=== PATIENT | female | born 1970 | race African-American/Black ===

== ENCOUNTER 2020-05-26 08:04 | Emergency (ER) | payer OTHER, SELFPAY ==
[2020-05-26 08:27] VITALS: BP 145/74; PULSE 93; RESP 16; TEMP 37.2; O2SAT 100
--- NOTE | 2020-05-26 08:50 | ED.EYEPROB ---
HPI - Eye Problem General Chief complaint: Upper Respiratory Infection Stated complaint: pssible sinus infection Time Seen by Provider: 05/26/20 08:28 Source: patient and RN notes reviewed Mode of arrival: ambulatory Limitations: no limitations History of Present Illness HPI Narrative: Patient presents today complaining of a 1+ week history of itchy and burning, and stringy watery eyes that are matted every morning, left greater than right. No blurred vision or vision changes. Associated symptoms include postnasal drip. She has been taking Tylenol Sinus and Flonase without relief. She does not wear contacts. chief complaint: other (Eye discharge) Related Data Home Medications Medication Instructions Recorded Confirmed albuterol sulfate 2.5 mg CONTINUOUS NEBULIZATION QID 05/26/20 05/26/20 amoxicillin-pot clavulanate 1 tablet PO BID 05/26/20 05/26/20 atorvastatin 40 mg PO DAILY 05/26/20 05/26/20 diclofenac sodium 75 mg PO BID 05/26/20 05/26/20 ergocalciferol (vitamin D2) 1,250 mcg PO DAILY 05/26/20 05/26/20 fluticasone propionate 2 spray INTRANASAL DAILY 05/26/20 05/26/20 lisinopril-hydrochlorothiazide 1 tablet PO DAILY 05/26/20 05/26/20 meloxicam 15 mg PO DAILY 05/26/20 05/26/20 Allergies Allergy/AdvReac Type Severity Reaction Status Date / Time azithromycin Allergy Unknown Unknown Verified 05/26/20 08:12 Review of Systems Review of Systems: Narrative: CONSTITUTIONAL: Denies body aches, fever, chills, or sweats. EYES: Denies visual changes. +bilateral eye redness, itching, drainage ENT: Denies rhinorrhea, congestion, sore throat, or otalgia. +postnasal drip CARDIOVASCULAR: Denies chest pain, palpitations, or edema. RESPIRATORY: Denies cough or dyspnea. GASTROINTESTINAL: Denies abdominal pain, nausea, vomiting, or diarrhea. GENITOURINARY: Denies dysuria or hematuria. SKIN: Denies rash, itching, or wounds. MUSCULOSKELETAL: Denies back pain, joint pain, or myalgia. NEUROLOGIC: Denies headache, numbness, tingling, or weakness. PSYCH: Denies depression or anxiety. [facility] Past Medical History Medical History (Updated 05/26/20 @ 08:53 by Marianela Bonds, [facility], ) Asthma Bilateral knee pain Degenerative joint disease of knee High cholesterol HTN (hypertension) Seasonal allergies Weight gain Family History Family History (Updated 05/18/20 @ 15:29 by Traci Willard, RT(R)) Mother Hypertension Family history of arthritis Unknown Cancer Other Nerve disorder Social History Social History (Updated 05/18/20 @ 15:29 by Traci Willard, RT(R)) Smoking status: Former smoker Smoking end date: 10/02/05 Alcohol intake: current Comments At time of signature, I have reviewed and agree with nursing past medical, surgical, social and family history unless otherwise noted. Please see nursing chart for further information. There is no relevant family history pertinent to the presenting complaint Exam Narrative: Exam Narrative: GENERAL: Well-appearing, well-nourished, and in no acute distress. HEAD: Normocephalic, atraumatic. EYES: EOMI. No redness or drainage. Conjunctivae mildly injected. No purulent drainage. No active matting. No swelling of the eyelids. ENT: Mucous membranes pink and moist. Nares clear. No rhinorrhea. TMs normal bilaterally. Throat normal. Uvula midline. NECK: Normal AROM. Supple. No lymphadenopathy. CHEST: No respiratory distress. Clear to auscultation. HEART: Regular rate and rhythm. No murmur appreciated. Normal peripheral pulses. EXTREMITIES: Normal range of motion. No edema. SKIN: Warm, dry, no rash. Capillary refill normal. Normal skin turgor. NEURO: No focal deficits. Alert and oriented x3. Gait steady. PSYCH: Normal affect. No signs of depression or anxiety. Course Vital Signs Vital signs: Vital Signs Temperature 98.9 F 05/26/20 08:27 Pulse Rate 93 05/26/20 08:27 Respiratory Rate 16 05/26/20 08:27 Blood Pressure 145/74 H 05/26/20 08
== END 2020-05-26 08:54 | disposition home or self-care (01) ==
PROVIDERS: Emergency Provider Nurse Practitioner; PCP Family Medicine
DX: H10.13 Acute atopic conjunctivitis, bilateral (principal); Z87.891 Personal history of nicotine dependence; J45.909 Unspecified asthma, uncomplicated; E78.00 Pure hypercholesterolemia, unspecified; I10 Essential (primary) hypertension
CPT/HCPCS: 99211; G0463

== ENCOUNTER 2021-08-17 08:06 | Emergency (ER) | payer OTHER, SELFPAY ==
[2021-08-17 08:15] VITALS: BP 157/90; PULSE 91; RESP 16; TEMP 36.6; O2SAT 99
--- NOTE | 2021-08-17 08:41 | ED.GENADULT ---
HPI - General Adult General Chief complaint: Upper Respiratory Infection Stated complaint: sore throat Time Seen by Provider: 08/17/21 08:30 Source: patient and RN notes reviewed Mode of arrival: ambulatory Limitations: no limitations History of Present Illness HPI narrative: Patient presents today complaining of a painful area to the roof of her mouth x2 days. States the area is only painful when she eats, drinks, or touches it. She also reports associated symptoms for the past 2 months to include congestion, sinus pressure, postnasal drainage. Denies any painful, broken, or infected teeth, as she has dentures on the top. She has not tried any syzu-zau-noakudt medication for pain prior to arrival. She has been using Flonase and allergy medication for her sinus symptoms. MD complaint: Lesion to roof of mouth Related Data Home Medications Medication Instructions Recorded Confirmed atorvastatin 40 mg PO DAILY 05/26/20 08/17/21 diclofenac sodium 75 mg PO BID 05/26/20 08/17/21 ergocalciferol (vitamin D2) 1,250 mcg PO DAILY 05/26/20 08/17/21 fluticasone propionate 2 spray INTRANASAL DAILY 05/26/20 08/17/21 lisinopril-hydrochlorothiazide 1 tablet PO DAILY 05/26/20 08/17/21 meloxicam 15 mg PO DAILY 05/26/20 08/17/21 famotidine 20 mg PO DAILY 08/17/21 08/17/21 ferrous sulfate [FeroSul] 325 mg PO DAILY 08/17/21 08/17/21 trazodone 100 mg PO DAILY 08/17/21 08/17/21 Allergies Allergy/AdvReac Type Severity Reaction Status Date / Time azithromycin Allergy Unknown Unknown Verified 08/17/21 08:26 Review of Systems Review of Systems: CONSTITUTIONAL: Denies body aches, fever, chills, or sweats. EYES: Denies visual changes, redness, or discharge. ENT: Denies rhinorrhea, sore throat, or otalgia.+ Postnasal drip, congestion, sinus pressure, sore to roof of mouth CARDIOVASCULAR: Denies chest pain, palpitations, or edema. RESPIRATORY: Denies cough or dyspnea. GASTROINTESTINAL: Denies abdominal pain, nausea, vomiting, or diarrhea. GENITOURINARY: Denies dysuria or hematuria. SKIN: Denies rash, itching, or wounds. MUSCULOSKELETAL: Denies back pain, joint pain, or myalgia. NEUROLOGIC: Denies headache, numbness, tingling, or weakness. PSYCH: Denies depression or anxiety. [facility] Past Medical History Medical History Asthma Bilateral knee pain Degenerative joint disease of knee High cholesterol HTN (hypertension) Seasonal allergies Weight gain Family History Family History Mother Hypertension Family history of arthritis Unknown Cancer Other Nerve disorder Social History Social History Smoking status: Former smoker Smoking end date: 10/02/05 Alcohol intake: current Alcohol use details: Occasional Comments At time of signature, I have reviewed and agree with nursing past medical, surgical, social and family history unless otherwise noted. Please see nursing chart for further information. There is no relevant family history pertinent to the presenting complaint Exam Narrative: GENERAL: Well-appearing, well-nourished, and in no acute distress. HEAD: Normocephalic, atraumatic. EYES: EOMI. No redness or drainage. Conjunctivae normal. ENT: Mucous membranes pink and moist. Nares congested. No rhinorrhea. TMs normal bilaterally. Throat normal. Uvula midline. 1x1.5cm lesion to midline hard palate that appears erythematous, possibly containing some purulent drainage. Patient has upper dentures. NECK: Normal AROM. Supple. No lymphadenopathy. CHEST: No respiratory distress. EXTREMITIES: Normal range of motion. No edema. SKIN: Warm, dry, no rash. Capillary refill normal. Normal skin turgor. NEURO: No focal deficits. Alert and oriented x3. Gait steady. PSYCH: Normal affect. No signs of depression or anxiety. Course Vital Signs Vi
== END 2021-08-17 08:55 | disposition home or self-care (01) ==
PROVIDERS: Emergency Provider Nurse Practitioner; PCP Family Medicine
DX: J32.9 Chronic sinusitis, unspecified (principal); K12.2 Cellulitis and abscess of mouth; Z87.891 Personal history of nicotine dependence; J45.909 Unspecified asthma, uncomplicated; E78.00 Pure hypercholesterolemia, unspecified; I10 Essential (primary) hypertension; M17.10 Unilateral primary osteoarthritis, unspecified knee
CPT/HCPCS: 99213; G0463

== ENCOUNTER 2023-01-12 19:33 | Emergency (ER) | payer OTHER, SELFPAY ==
[2023-01-12 19:43] VITALS: BP 173/87; PULSE 95; RESP 16; TEMP 36.6; O2SAT 99
--- NOTE | 2023-01-12 19:52 | ED.GENADULT ---
HPI - General Adult General Chief complaint: Unspecified Stated complaint: HBP Time Seen by Provider: 01/12/23 19:52 Source: patient Mode of arrival: ambulatory Limitations: no limitations History of Present Illness HPI narrative: Patient is a 52-year-old female that presents with concern for high blood pressure. States she just got a new at home blood pressure monitor and states it has been reading 190s over 104. The patient states she has had increased stress due to new bills. Patient denies any changes in diet, changes in vision, headaches, numbness tingling to 1 side of her body and chest pain. Patient picked up medications January 02. States she went a few days without medications. Related Data Home Medications Medication Instructions Recorded Confirmed atorvastatin 40 mg tablet 40 mg PO DAILY 05/26/20 08/17/21 diclofenac sodium 75 mg 75 mg PO BID 05/26/20 08/17/21 tablet,delayed release ergocalciferol (vitamin D2) 1,250 1,250 mcg PO DAILY 05/26/20 08/17/21 mcg (50,000 unit) capsule fluticasone propionate 50 2 spray intranasal DAILY 05/26/20 08/17/21 mcg/actuation nasal spray,suspension lisinopril 20 1 tablet PO DAILY 05/26/20 08/17/21 mg-hydrochlorothiazide 12.5 mg tablet meloxicam 15 mg tablet 15 mg PO DAILY 05/26/20 08/17/21 famotidine 20 mg tablet 20 mg PO DAILY 08/17/21 08/17/21 ferrous sulfate 325 mg (65 mg 325 mg PO DAILY 08/17/21 08/17/21 iron) tablet (FeroSul) trazodone 100 mg tablet 100 mg PO DAILY 08/17/21 08/17/21 Allergies Allergy/AdvReac Type Severity Reaction Status Date / Time azithromycin Allergy Unknown Unknown Verified 01/12/23 19:51 Review of Systems Review of Systems: All systems reviewed & are unremarkable except as noted in HPI and below Constitutional: Constitutional: Denies body ache(s), Denies fever(s), Denies headache(s), Denies malaise and Denies weakness Eyes: Eyes: Denies loss of vision ENT: Denies otalgia, Denies headache(s), Denies nasal discharge, Denies sinus pain and Denies sore throat Cardiovascular: Cardiovascular: Denies chest pain, Denies irregular heart rhythm and Denies dyspnea Respiratory: Respiratory: Denies dyspnea Gastrointestinal: Gastrointestinal: Denies abdominal pain, Denies melena, Denies hematochezia, Denies diarrhea, Denies nausea and Denies vomiting Musculoskeletal: Musculoskeletal: Denies back pain, Denies myalgias and Denies arthralgias Integumentary/Breasts: Skin/Breast: Denies pruritus and Denies rash Neurologic: Denies headache(s), Denies loss of vision and Denies weakness Psychiatric: Psychiatric: Reports no additional psychiatric complaints PMFSH Past Medical History Medical History Asthma Bilateral knee pain Degenerative joint disease of knee High cholesterol HTN (hypertension) Seasonal allergies Weight gain Family History Family History Mother Hypertension Family history of arthritis Unknown Cancer Other Nerve disorder Social History Social History Smoking status: Former smoker Smoking end date: 10/02/05 Alcohol intake: current Alcohol use details: Occasional Comments At time of signature, agree with nursing past medical, surgical, social and family history. There is no relevant family history pertinent to the presenting complaint. Exam Const: General: cooperative, healthy appearing, comfortable, no acute distress and well nourished Nutritional Appearance: well nourished Orientation/consciousness: patient oriented x3 Limitations: no limitations HENMT: Head: normal to inspection, normocephalic and atraumatic Ears: external ears normal Face/Nose/Sinus: Normal external nose present, normal facial exam and face symmetric Face and sinus: normal facial exam and face symmetric Mouth: Yes lip normal Eyes: Gene
== END 2023-01-12 20:07 | disposition home or self-care (01) ==
PROVIDERS: Emergency Provider Nurse Practitioner Family
DX: I10 Essential (primary) hypertension (principal); Z87.891 Personal history of nicotine dependence; J45.909 Unspecified asthma, uncomplicated; E78.00 Pure hypercholesterolemia, unspecified
CPT/HCPCS: 99211; G0463

== ENCOUNTER 2023-01-24 08:45 | Emergency (ER) | payer OTHER, SELFPAY ==
[2023-01-24 08:53] VITALS: BP 159/90; PULSE 79; RESP 16; TEMP 36.2; O2SAT 100
--- NOTE | 2023-01-24 09:14 | ED.URI ---
HPI - URI/Sore Throat General Chief Complaint: Upper Respiratory Infection Stated Complaint: Sinus Time Seen by Provider: 01/24/23 09:16 Source: patient, RN notes reviewed and old records reviewed Mode of arrival: ambulatory Limitations: no limitations History of Present Illness HPI Narrative: 52-year-old female presents to the [facility] with complaints of left-sided ear pain, sinus pressure, sore throat that started over a week ago. Has tried multiple [id number]-[id number] products with no relief. Has not taken her blood pressure medication, states that she normally takes it every morning. MD elicited complaint: sore throat, rhinorrhea, nasal congestion and sinus pain Onset (ago): week(s) (1+) Treatments prior to arrival: cold medicine Related Data Home Medications Medication Instructions Recorded Confirmed atorvastatin 40 mg tablet 40 mg PO DAILY 05/26/20 01/24/23 diclofenac sodium 75 mg 75 mg PO BID 05/26/20 01/24/23 tablet,delayed release ergocalciferol (vitamin D2) 1,250 1,250 mcg PO DAILY 05/26/20 01/24/23 mcg (50,000 unit) capsule fluticasone propionate 50 2 spray intranasal DAILY 05/26/20 01/24/23 mcg/actuation nasal spray,suspension lisinopril 20 1 tablet PO DAILY 05/26/20 01/24/23 mg-hydrochlorothiazide 12.5 mg tablet meloxicam 15 mg tablet 15 mg PO DAILY 05/26/20 01/24/23 famotidine 20 mg tablet 20 mg PO DAILY 08/17/21 01/24/23 ferrous sulfate 325 mg (65 mg 325 mg PO DAILY 08/17/21 01/24/23 iron) tablet (FeroSul) trazodone 100 mg tablet 100 mg PO DAILY 08/17/21 01/24/23 Allergies Allergy/AdvReac Type Severity Reaction Status Date / Time azithromycin Allergy Unknown Unknown Verified 01/24/23 08:52 Review of Systems Review of Systems: All systems reviewed & are unremarkable except as noted in HPI and below Constitutional: Constitutional: Reports no additional constitutional complaints Eyes: Eyes: Reports no additional eye complaints ENT: Reports as per HPI, Reports otalgia (Left), Reports nasal congestion, Reports nasal discharge, Reports sinus pain, Reports sinus pressure and Reports sore throat Cardiovascular: Cardiovascular: Reports no additional cardiovascular complaints, Denies chest pain and Denies dyspnea Respiratory: Respiratory: Reports no additional respiratory complaints, Denies chest congestion, Denies cough and Denies dyspnea Gastrointestinal: Gastrointestinal: Reports no additional gastrointestinal complaints, Denies abdominal pain, Denies nausea and Denies vomiting Musculoskeletal: Musculoskeletal: Reports no additional musculoskeletal complaints Integumentary/Breasts: Skin/Breast: Reports system reviewed and no additional complaints, except as docu Neurologic: Reports system reviewed and no additional complaints, except as documented Psychiatric: Psychiatric: Reports no additional psychiatric complaints Allergic/Immunologic: Allergic/Immunologic: Reports no additional allergic/immunologic complaints PMFSH Past Medical History Medical History Asthma Bilateral knee pain Degenerative joint disease of knee High cholesterol HTN (hypertension) Seasonal allergies Weight gain Family History Family History Mother Hypertension Family history of arthritis Unknown Cancer Other Nerve disorder Social History Social History Smoking status: Former smoker Smoking end date: 10/02/05 Alcohol intake: current Alcohol use details: Occasional Comments At the time of my signature, I reviewed and agree with the nursing past medical, surgical, social, and family history. There is no relevant family history pertinent to the patient complaint. Exam Const: General: cooperative, healthy appearing, comfortable, no acute distress, well developed, alert and well nourished Nutritional Appearance: well vidhi
[2023-01-24 09:44] VITALS: BP 157/90
== END 2023-01-24 09:44 | disposition home or self-care (01) ==
PROVIDERS: Emergency Provider Nurse Practitioner; PCP Physician Assistant
DX: J01.90 Acute sinusitis, unspecified (principal); Z87.891 Personal history of nicotine dependence; J45.909 Unspecified asthma, uncomplicated; E78.00 Pure hypercholesterolemia, unspecified; I10 Essential (primary) hypertension
CPT/HCPCS: 99213; G0463

== ENCOUNTER 2023-02-04 17:21 | Emergency (ER) | payer OTHER, SELFPAY ==
[2023-02-04 17:31] VITALS: BP 157/85; PULSE 94; RESP 16; TEMP 36.9; O2SAT 16
--- NOTE | 2023-02-04 17:47 | ED.NAVMDI ---
HPI - Nausea/Vomiting/Diarrhea General Chief complaint: Nausea/Vomiting/Diarrhea Stated complaint: pain in stomach, n/v Time Seen by Provider: 02/04/23 17:50 Source: patient and RN notes reviewed Mode of arrival: ambulatory Limitations: no limitations History of Present Illness HPI Narrative: 52-year-old female presents with concern for nausea and vomiting. She reports she started vomiting around 2:00 p.m. today. Reports she thinks she had some bad watermelon last night. She reports abdominal cramping and epigastric pain. She denies diarrhea, fever, aches, chills, sweats. She denies back pain, dysuria, urgency, frequency, hematuria. She reports normal urine output MD elicited complaint: nausea and vomiting Related Data Home Medications Medication Instructions Recorded Confirmed atorvastatin 40 mg tablet 40 mg PO DAILY 05/26/20 01/24/23 diclofenac sodium 75 mg 75 mg PO BID 05/26/20 01/24/23 tablet,delayed release ergocalciferol (vitamin D2) 1,250 1,250 mcg PO DAILY 05/26/20 01/24/23 mcg (50,000 unit) capsule fluticasone propionate 50 2 spray intranasal DAILY 05/26/20 01/24/23 mcg/actuation nasal spray,suspension lisinopril 20 1 tablet PO DAILY 05/26/20 01/24/23 mg-hydrochlorothiazide 12.5 mg tablet meloxicam 15 mg tablet 15 mg PO DAILY 05/26/20 01/24/23 famotidine 20 mg tablet 20 mg PO DAILY 08/17/21 01/24/23 ferrous sulfate 325 mg (65 mg 325 mg PO DAILY 08/17/21 01/24/23 iron) tablet (FeroSul) trazodone 100 mg tablet 100 mg PO DAILY 08/17/21 01/24/23 Allergies Allergy/AdvReac Type Severity Reaction Status Date / Time azithromycin Allergy Unknown Unknown Verified 02/04/23 17:40 Review of Systems Review of Systems: CONSTITUTIONAL: Denies malaise, chills, sweats, or fever. ENT: Denies rhinorrhea, congestion, sinus pain, otalgia or sore throat. CARDIOVASCULAR: Denies chest pain, palpitations, or edema. RESPIRATORY: Denies cough or dyspnea. GASTROINTESTINAL: Reports epigastric abdominal discomfort, nausea, vomiting. Denies diarrhea, bloody, or mucous stools. GENITOURINARY: Denies dysuria or hematuria. MUSCULOSKELETAL: Denies myalgia. NEUROLOGIC: Denies headache. All systems reviewed & are unremarkable except as noted in HPI and below PMFSH Past Medical History Medical History Asthma Bilateral knee pain Degenerative joint disease of knee High cholesterol HTN (hypertension) Seasonal allergies Weight gain Family History Family History Mother Hypertension Family history of arthritis Unknown Cancer Other Nerve disorder Social History Social History Smoking status: Former smoker Smoking end date: 10/02/05 Alcohol intake: current Alcohol use details: Occasional Comments At time of signature, agree with nursing past medical, surgical, social and family history. There is no relevant family history pertinent to the presenting complaint Exam Narrative: GENERAL: Well-appearing, well-nourished, and in no acute distress. HEAD: Normocephalic, atraumatic. EYES: PERRLA, conjunctivae clear, and EOMI. ENT: Nares clear, turbinates pink, no rhinorrhea or epistaxis. Mucous membranes moist. Oropharynx without edema, erythema, or lesions. Tonsils not enlarged and without exudate. NECK: Supple. No lymphadenopathy CHEST: Speaks in full sentences. No respiratory distress. HEART: Regular rate and rhythm. ABDOMEN: Soft, obese, nondistended, epigastric tenderness. No guarding, rebound tenderness, or rigidity. No pulsatile masses. Bowel sounds present in all four quadrants. No organomegaly. Negative Arriaza?s sign. No periumbilical tenderness. No Supra public tenderness or distension. Good femoral pulses bilaterally. No hernia noted. No scars or surface trauma. SKIN: Warm, dry, no rash. NEURO: Alert and oriented x3. PSYCH: Norm
[2023-02-04] MEDS: LIDOCAINE HCL 2% VISC SOLN 15 ML UDC PO (18:06)
[2023-02-04] MEDS: MAG HYDROX/AL HYDROX/SIMETH 30 ML UDC PO (18:06)
--- NOTE | 2023-02-04 18:46 | PC.NURSE ---
soha was called in to [facility]. pharmacist stated pt was in drive thru and would be able to get rx.
== END 2023-02-04 18:20 | disposition home or self-care (01) ==
PROVIDERS: Emergency Provider Nurse Practitioner; PCP Physician Assistant
DX: R11.2 Nausea with vomiting, unspecified (principal); I10 Essential (primary) hypertension; Z87.891 Personal history of nicotine dependence
CPT/HCPCS: 99213; A9270; G0463

== ENCOUNTER 2023-04-10 09:42 | Emergency (ER) | payer OTHER, SELFPAY ==
[2023-04-10 09:49] VITALS: BP 136/82; PULSE 86; RESP 16; TEMP 36.9; O2SAT 100
--- NOTE | 2023-04-10 10:30 | ED.EXTPRO ---
HPI - Extremity Problem General Chief complaint: Extremity Injury, Upper Stated complaint: left shoulder pain Time Seen by Provider: 04/10/23 10:22 Source: patient and RN notes reviewed Mode of arrival: ambulatory Limitations: no limitations History of Present Illness HPI Narrative: Patient presents today complaining of left shoulder pain x1 week. States she woke up from bed with the pain. Denies injury or trauma. Denies numbness or tingling in the arm or hand. Denies neck pain. States pain radiates to the upper arm. Currently rates her pain 5/10 and has been taking ibuprofen with some short-term relief. Related Data Home Medications Medication Instructions Recorded Confirmed atorvastatin 40 mg tablet 40 mg PO DAILY 05/26/20 04/10/23 diclofenac sodium 75 mg 75 mg PO BID 05/26/20 04/10/23 tablet,delayed release ergocalciferol (vitamin D2) 1,250 1,250 mcg PO DAILY 05/26/20 04/10/23 mcg (50,000 unit) capsule fluticasone propionate 50 2 spray intranasal DAILY 05/26/20 04/10/23 mcg/actuation nasal spray,suspension lisinopril 20 1 tablet PO DAILY 05/26/20 04/10/23 mg-hydrochlorothiazide 12.5 mg tablet meloxicam 15 mg tablet 15 mg PO DAILY 05/26/20 04/10/23 famotidine 20 mg tablet 20 mg PO DAILY 08/17/21 04/10/23 ferrous sulfate 325 mg (65 mg 325 mg PO DAILY 08/17/21 04/10/23 iron) tablet (FeroSul) trazodone 100 mg tablet 100 mg PO DAILY 08/17/21 04/10/23 Allergies Allergy/AdvReac Type Severity Reaction Status Date / Time azithromycin Allergy Unknown Unknown Verified 04/10/23 09:47 Review of Systems Review of Systems: CONSTITUTIONAL: Denies body aches, fever, chills, or sweats. EYES: Denies visual changes, redness, or discharge. ENT: Denies rhinorrhea, congestion, sore throat, or otalgia. CARDIOVASCULAR: Denies chest pain, palpitations, or edema. RESPIRATORY: Denies cough or dyspnea. GASTROINTESTINAL: Denies abdominal pain, nausea, vomiting, or diarrhea. GENITOURINARY: Denies dysuria or hematuria. SKIN: Denies rash, itching, or wounds. MUSCULOSKELETAL: Denies back pain, or myalgia.+ left shoulder pain NEUROLOGIC: Denies headache, numbness, tingling, or weakness. PSYCH: Denies depression or anxiety. [facility] Past Medical History Medical History Asthma Bilateral knee pain Degenerative joint disease of knee High cholesterol HTN (hypertension) Seasonal allergies Weight gain Family History Family History Mother Hypertension Family history of arthritis Unknown Cancer Other Nerve disorder Social History Social History Smoking status: Former smoker Smoking end date: 10/02/05 Alcohol intake: current Alcohol use details: Occasional Comments At time of signature, I have reviewed and agree with nursing past medical, surgical, social and family history unless otherwise noted. Please see nursing chart for further information. There is no relevant family history pertinent to the presenting complaint Exam Narrative: GENERAL: Well-appearing, well-nourished, and in no acute distress. HEAD: Normocephalic, atraumatic. EYES: EOMI. No redness or drainage. Conjunctivae normal. ENT: Mucous membranes pink and moist. NECK: Normal AROM. Nontender CHEST: No respiratory distress. EXTREMITIES: + left shoulder: Tenderness to the anterior and lateral joint line. Tenderness to the proximal biceps. No tenderness to the neck or trapezius area. Distal sensation intact. Capillary refill normal. Pain with end range of motion with overhead reach and abduction as well as internal rotation. SKIN: Warm, dry, no rash. Capillary refill normal. Normal skin turgor. NEURO: No focal deficits. Alert and oriented x3. Gait steady. PSYCH: Normal affect. No signs of depression or anxiety. Course Course Level o
== END 2023-04-10 10:46 | disposition home or self-care (01) ==
PROVIDERS: Emergency Provider Nurse Practitioner; PCP Physician Assistant
DX: M25.512 Pain in left shoulder (principal); Z87.891 Personal history of nicotine dependence; J45.909 Unspecified asthma, uncomplicated; E78.00 Pure hypercholesterolemia, unspecified; I10 Essential (primary) hypertension
CPT/HCPCS: 99212; G0463

== ENCOUNTER 2024-01-26 08:21 | Emergency (ER) | payer OTHER, SELFPAY ==
[2024-01-26 08:30] VITALS: BP 163/80; PULSE 85; RESP 18; TEMP 36.8; O2SAT 100
--- NOTE | 2024-01-26 08:41 | ED.URI ---
HPI - URI/Sore Throat General Chief Complaint: Upper Respiratory Infection Stated Complaint: Sinus Time Seen by Provider: 01/26/24 08:41 Source: patient Mode of arrival: ambulatory Limitations: no limitations History of Present Illness HPI Narrative: 53-year-old female presents with complaint of right-sided sinus congestion, pressure, ear pain, sore throat to right side for 2 weeks. Taking Claritin daily. Has also use [id number] sinus decongestant with no relief of her symptoms. Afebrile. Denies cough. Denies nausea vomiting diarrhea. Patient concerned for sinus infection. All systems reviewed and negative except as noted above. Related Data Home Medications Medication Instructions Recorded Confirmed atorvastatin 40 mg tablet 40 mg PO DAILY 05/26/20 04/10/23 ergocalciferol (vitamin D2) 1,250 1,250 mcg PO DAILY 05/26/20 04/10/23 mcg (50,000 unit) capsule lisinopril 20 1 tablet PO DAILY 05/26/20 04/10/23 mg-hydrochlorothiazide 12.5 mg tablet famotidine 20 mg tablet 20 mg PO DAILY 08/17/21 04/10/23 ferrous sulfate 325 mg (65 mg 325 mg PO DAILY 08/17/21 04/10/23 iron) tablet (FeroSul) trazodone 100 mg tablet 100 mg PO DAILY 08/17/21 04/10/23 amlodipine 10 mg tablet mg 01/26/24 sitagliptin phosphate 100 mg mg 01/26/24 tablet (Januvia) Allergies Allergy/AdvReac Type Severity Reaction Status Date / Time azithromycin Allergy Unknown Unknown Verified 01/26/24 08:37 Review of Systems Review of Systems: CONSTITUTIONAL: Denies fever, chills, or sweats. reports fatigue. EYES: Denies visual changes, redness, or discharge. ENT: Reports rhinorrhea, congestion, sore throat, right ear pain CARDIOVASCULAR: Denies chest pain, palpitations, or edema. RESPIRATORY: denies cough or dyspnea. GASTROINTESTINAL: Denies abdominal pain, nausea, vomiting, or diarrhea. GENITOURINARY: Denies dysuria or hematuria. SKIN: Denies rash or itching. MUSCULOSKELETAL: Denies back pain, joint pain, or myalgia. NEUROLOGIC: Denies headache, numbness, or weakness. PSYCHIATRIC: Denies anxiety or depression. All other systems reviewed are negative, except as documented in HPI. [facility], [facility] Past Medical History Medical History Asthma Bilateral knee pain Degenerative joint disease of knee High cholesterol HTN (hypertension) Seasonal allergies Weight gain Family History Family History Mother Hypertension Family history of arthritis Unknown Cancer Other Nerve disorder Social History Social History Smoking status: Former smoker Smoking end date: 10/02/05 Alcohol intake: current Alcohol use details: Occasional Comments At time of signature, agree with nursing past medical, surgical, social and family history. There is no relevant family history pertinent to the presenting complaint. Exam Narrative: GENERAL: This is a well-nourished, well-developed patient, in no apparent distress. HEAD: normocephalic, atraumatic. EYES: PERRL. Sclera clear/white. Vision is grossly intact. EARS: External ears normal, auditory canals clear and without drainage, Fluid bilateral TMs without perforation. Hearing grossly intact. NOSE: External nose normal with mild congestion, clear nasal drainage, erythema and swelling to bilateral nares. Frontal and maxillary sinus tenderness bilaterally. THROAT: Mucous membranes moist, mild erythema with postnasal drainage. Tonsils normal without exudates. NECK: Neck supple, non-tender without lymphadenopathy, masses or thyromegaly. CARDIOVASCULAR: Regular rate and rhythm without murmurs, gallops, or rubs. RESPIRATORY: Clear to auscultation. Breath sounds equal bilaterally. No wheezes, rales, or rhonchi. SKIN: warm, Dry, intact with no suspicious lesions or rash, good texture and turgor. NEURO: awake,
== END 2024-01-26 09:05 | disposition home or self-care (01) ==
PROVIDERS: Emergency Provider Nurse Practitioner Family; PCP Physician Assistant
DX: J01.90 Acute sinusitis, unspecified (principal); Z87.891 Personal history of nicotine dependence; J45.909 Unspecified asthma, uncomplicated; E78.00 Pure hypercholesterolemia, unspecified; I10 Essential (primary) hypertension
CPT/HCPCS: 99213; G0463

== ENCOUNTER 2024-08-27 08:09 | Emergency (ER) | payer OTHER, SELFPAY ==
--- NOTE | 2024-08-27 08:11 | ED_ITS ---
HPI - Abdominal Pain General Chief Complaint: Abdominal Pain Stated Complaint: Lower Back/Abdominal Pain Time Seen by Provider: 08/27/24 08:10 Source: patient Mode of arrival: ambulatory Limitations: no limitations History of Present Illness HPI narrative: Barbara is a 54-year-old female patient presenting to the clinic today with complaints of right lower back pain/right lower abdominal pain. She reports symptoms have been going on for 3 days. Has taken a back pill and this helps the pain. Rates her pain 7/10 currently. Pain is sharp and aching in nature. Pain radiates from the right lower flank to the right lower abdomen. Denies any urinary symptoms. Denies any fever, chills, body aches, nausea, vomiting, or diarrhea. Related Data Home Medications Medication Instructions Recorded Confirmed atorvastatin 40 mg tablet 40 mg PO DAILY 05/26/20 04/10/23 ergocalciferol (vitamin D2) 1,250 1,250 mcg PO DAILY 05/26/20 04/10/23 mcg (50,000 unit) capsule lisinopril 20 1 tablet PO DAILY 05/26/20 04/10/23 mg-hydrochlorothiazide 12.5 mg tablet famotidine 20 mg tablet 20 mg PO DAILY 08/17/21 04/10/23 ferrous sulfate 325 mg (65 mg 325 mg PO DAILY 08/17/21 04/10/23 iron) tablet (FeroSul) trazodone 100 mg tablet 100 mg PO DAILY 08/17/21 04/10/23 amlodipine 10 mg tablet mg 01/26/24 sitagliptin phosphate 100 mg mg 01/26/24 tablet (Januvia) Allergies Allergy/AdvReac Type Severity Reaction Status Date / Time azithromycin Allergy Unknown Unknown Verified 08/27/24 08:11 Review of Systems Review of Systems: Pertinent positives per HPI. Patient denies any fever, chills, rash, headache, visual changes, dizziness, cough, runny nose, sore throat, shortness of breath, chest pain, palpitations, nausea, vomiting, diarrhea, constipation, or any urinary issues. [facility] Past Medical History Medical History Asthma Bilateral knee pain Degenerative joint disease of knee High cholesterol HTN (hypertension) Seasonal allergies Weight gain Family History Family History Mother Hypertension Family history of arthritis Unknown Cancer Other Nerve disorder Social History Social History Smoking status: Former smoker Smoking end date: 10/02/05 Alcohol intake: current Alcohol use details: Occasional Comments At the time of my signature, I reviewed and agree with the nursing past medical, surgical, social, and family history. There is no relevant family history pertinent to the patient complaint. Exam Narrative: General: Well-developed, well nourished, in no apparent distress. Head: Normocephalic, atraumatic. Cardio: Regular rate and rhythm, s1 and s2 normal, no murmur appreciated. Resp: Clear to auscultation bilaterally, no rhonchi, rales, wheezing or rubs. Abdomen: Soft, pliable, bowel sounds present in all quadrants, right lower abdomen tender to palpation, no organomegly, right CVAT tenderness. Course Course Emergency Course: Portions of this record may have been created with voice recognition software. Level of Care: Express Care Visit Vital Signs Vital signs: Vital signs reviewed Transfer Transfer rationale: RLQ/flank pain r/o appy/stone Accepting physician: Dr. Beltran Transfer comments: Private car MDM - Abdominal Pain MDM Narrative Medical decision making narrative: At the time of visit patient is resting comfortably on the exam table. Patient appears to be nontoxic. Labs: Urinalysis dip was performed and shows 2+ glucose. No sign of infection or blood. Plan: Recommend transfer to the ER for further evaluation to rule out ureteral stone/appendicitis. Patient agrees to transfer. Patient would like to be transfer to [facility] ER. Contacted [facility] and spoke with Tena ARELLANO and report was given for continuity of care. Dr. Beltran accepts patient for transfer Differential Diagnosis Differential diagnosis: Likely abdominal pain, acute appendicitis, calculus of kidney, constipation, diverticulitis, gastroenteritis, pancreatitis, small bowel obstruction and other (Ureterolithiasis) Discharge Plan Discharge Clinical Impression: Right flank pain, Right lower quadrant abdominal pain Patient Disposition: Acute Care Hospital Condition: Stable Prescriptions: No Action famotidine 20 mg tablet 20 mg PO DAILY trazodone 100 mg tablet 100 mg PO DAILY ferrous sulfate [FeroSul] 325 mg (65 mg iron) tablet 325 mg PO DAILY atorvastatin 40 mg tablet 40 mg PO DAILY lisinopril-hydrochlorothiazide 20-12.5 mg tablet 1 tablet PO DAILY ergocalciferol (vitamin D2) 1,250 mcg (50,000 unit) capsule 1,250 mcg PO DAILY amlodipine 10 mg tablet Januvia 100 mg tablet prednisone 20 mg tablet 40 mg PO DAILY 5 Days Qty: 10 0RF fluticasone propionate [Flonase Allergy Relief] 50 mcg/actuation spray,suspension 1 spray intranasal BID Qty: 16 0RF Rx Instructions: administer into each nostril Follow-up/Referrals: Pablo,DARCI Whatley [Primary Care Provider] - Time of Disposition: 08:41 Quality NIHSS Nursing Documentation ED NIHSS nursing documentation: reviewed/agree
[2024-08-27 08:15] VITALS: BP 145/84; PULSE 87; RESP 16; TEMP 36.6; O2SAT 100
[2024-08-27 08:34] LABS: EDUAAPPEAR Clear; EDUABILI Negative (Negative); EDUABLOOD Negative (Negative); EDUACOLOR1 Light/Pale; EDUAGLUCOSE 2+ (Negative); EDUAKETONE Negative (Negative); EDUALEUKO Negative (Negative); EDUANITRATE Negative (Negative); EDUAPROTEIN Negative (Negative); EDUASPGRAVITY 1.025; EDUAUROBILI 0.2
== END 2024-08-27 08:50 | disposition short-term general hospital (02) ==
PROVIDERS: Emergency Provider Nurse Practitioner Family; PCP Physician Assistant
DX: R10.31 Right lower quadrant pain (principal); I10 Essential (primary) hypertension; Z87.891 Personal history of nicotine dependence
CPT/HCPCS: 81003; 99212; G0463